=== PATIENT | female | born 1955 | race African-American/Black ===

== ENCOUNTER 2018-07-30 04:22 | Inpatient (IN) | payer OTHER ==
[~2018-07-30] VITALS: Ht 160 cm; Wt 95.3 kg
[2018-07-30] VITALS (7 sets, daily range): BP systolic 141–171; BP diastolic 66–85
[~2018-07-30 04:22] MED LIST: ACCUNEB SO1.25 MG/1 INH; BISACODYL SUPP10 MG RECTAL; COUMADIN 5 MG TA5 M1 PER TUBE; ENOXAPARIN60 MG/0.1 SUBQ; HYDRALAZINE 2525 MG PER TUBE; LEVEMIR100 UNIT/1 SUBQ; LEVOTHYROXIN0.025 MG PER TUBE; LOMOTIL TABLET1 EACH PER TUBE; MAPAP325 MG/10. PO; MIRALAX17 GM PER TUBE; NORVASC5 MG PER TUBE
[2018-07-30] MEDS ORDERED: MEROPENEM 1 GM V1 GM IV (04:30)
[2018-07-30] MEDS ORDERED: REGLAN 10 MG TA10 MG PO (04:31)
[2018-07-30] MEDS ORDERED: OMEPRAZOLE40 MG PO (04:33)
[2018-07-30] MEDS ORDERED: MIRALAX17 GM PO (04:33)
[2018-07-30] MEDS ORDERED: ONDANSETRON HCL4 M2 PO (04:33)
[2018-07-30] MEDS ORDERED: UNICOMPLEX M TA1 TA1 PO (04:33)
[2018-07-30] MEDS ORDERED: ULTRAM 50MG TAB50 MG PO (04:34)
[2018-07-30] MEDS ORDERED: VANCOMYCIN HCL 11 G2 PO (04:35)
[2018-07-30] MEDS ORDERED: COUMADIN 2.5MG2.5 M1 PO (04:36)
[2018-07-30] MEDS ORDERED: VITAMIN D22000 UNIT PO (04:36)
[2018-07-30] MEDS ORDERED: VANCO1GM PO (04:36)
[2018-07-30] MEDS ORDERED: VITAMIN C500 M2 PO (04:36)
[2018-07-30 04:59] LABS: BE(vivo) -0.4 mmol/L (-2 to +3); HCO3 26.4 mmol/L (22.0-26.0); PCO2 55.4 mmHg (35.0-45.0); PO2 78.9 mmHg (80.0-100.0); sO2 94.2 % (92.0-98.0)
[2018-07-30 05:00] LABS: pH 7.296 (7.360-7.450)
[2018-07-30 06:16] LABS: ABSOLUTE NEUTROPHILS 13.3 thou/uL (1.4-8.2); BASOPHILS 0.1 % (0.0-2.0); EOSINOPHILS 0.1 % (0.0-3.0); HEMATOCRIT 24.8 % (37.0-47.0); HEMOGLOBIN 7.7 gm/dL (12.0-15.0); LYMPHOCYTES 2.8 % (24.0-44.0); MCHC 31.1 g/dL (28.0-37.0); MONOCYTES 2.7 % (1.0-8.0); PLATELET COUNT 211 thou/uL (150-400); POLYS 94.3 % (36.0-66.0); RBC 2.85 mil/uL (4.20-5.00); RDW 24.3 % (10.5-14.5); WBC 14.1 thou/uL (4.0-11.0)
[2018-07-30 06:21] LABS: CREATININE 1.2 mg/dL (0.6-1.0)
[2018-07-30 06:24] LABS: POTASSIUM 5.7 mmol/L (3.5-5.1)
[2018-07-30 06:28] LABS: ALBUMIN 1.1 g/dL (3.4-5.0); MAGNESIUM 2.1 mg/dL (1.8-2.4); TOTAL BILIRUBIN 0.3 mg/dL (<0.1-1.0); TOTAL PROTEIN 8.4 g/dL (6.4-8.2); TROPONIN-I 0.07 ng/mL (<0.06)
[2018-07-30 06:29] LABS: APTT 44.1 Seconds (24.5-32.8); PROTIME 30.8 Seconds (9.3-11.4)
[2018-07-30 13:39] LABS: URINE BILIRUBIN NEGATIVE (Negative); URINE BLOOD NEGATIVE (Negative); URINE CLARITY CLOUDY; URINE COLOR YELLOW; URINE GLUCOSE-RANDOM* NEGATIVE (Negative); URINE KETONES NEGATIVE (Negative); URINE LEUKOCYTES-REFLEX NEGATIVE (Negative); URINE NITRITE-REFLEX NEGATIVE (Negative); URINE PROTEIN (DIPSTICK) TRACE (Negative); URINE SPECIFIC GRAVITY 1.025 (1.005-1.035); URINE UROBILINOGEN 0.2 E.U./dl (0.2-1.0)
--- NOTE | 2018-07-30 18:53 | NUR ---
PATIENT ADMITTED TO ROOM. IS ALERT TO SELF. HAS TO BE STRONGLY ENCOURAGED TO PARTICIPATE IN CARE SHE WILL FIRST REJECT ANY CARE BEFORE ACCEPTING. NOTED RIGH ARM EDEMA AND DR CAMEJO NOTIFIED. NO NEW ORDERS. PT DID COMPLAIN OF PAIN TO COCCYX AND PRN PAIN MEDICATION ADMINISTERED. WOUND DRESSING CHANGED WITH WET TO DRY DRESSING APPLIED. WILL CONT WITH PLAN OF CARE.
[2018-07-31 00:17] VITALS: BP 168/90
[2018-07-31 03:39] VITALS: BP 157/87
--- NOTE | 2018-07-31 03:43 | NUR ---
\PATIENT IS SLOWLY PROGRESSING IN CARE PLAN. VITAL SIGNS STABLE WITH NURSE NOT PERCEIVING ANY NAUSEA ON BEHALF OF PATIENT. NURSE DID PERCEIVE PAIN WHEN MOVING PATIENT AND TREATED IT WITH NON PHARMACOLOGICAL INTERVENTIONS. PATIENT IS NON VERBAL AND HAS HARD TIME COMMUNICATING WITH STAFF. NURSE ATTEMPTS YES/NO QUESTION TO VARYING DEGREES OF SUCCESS. DUE TO COLLAPSED MARISA NURSE WAS HESITANT TO TURN PATIENT. BREATHING STABLE ON FOUR LITERS NASAL CANNULA EVIDENCED BY CONTINUOUS SATURATION MONITOR READINGS. FREQUENT FECAL INCONTINENCE CLEANED FROM PATIENT WITH COCCYX WOUND DRESSING CHANGED MULTIPLE TIMES. PATIENT IS NPO AND IS POSSIBLY GOING FOR A BRONCHOSCOPY AND THORACENTESIS TODAY. NURSE RECEIVED ORDERS FOR PICC PLACEMENT AND WILL ATTEMPT TO CALL [facility]PO[facility] FOR VERBAL CONSENT WITH DAY NURSE. CONTINUE PLAN OF CARE.
--- NOTE | 2018-07-31 05:15 | NUR ---
lab called with critical vanco trough of 40. followed poc and called [facility] cece and pharmacist evita. carrol now on hold.
[2018-07-31 08:00] VITALS: BP 122/64
--- NOTE | 2018-07-31 08:21 | EKG ---
[place] [place] [address] ELECTROCARDIOGRAM REPORT Name: DAVID BOWEN Room #: 360-P ADM IN M.R.#: [id number] ������������������ Admission: 07/30/18 ������������������ Attend Phys: Kenny Dudley Discharge: ������������������ Date of : 53 Report #: [id number] ����������������������������������������������������������������� [id number] THIS REPORT FOR: //name// [facility] ED Test Date: 2018-07-30 Test Time: 05:09:24 Pat Name: DAVID BOWEN Department: Room: 360 Gender: F Sheet Metal Former: JACOB : 1955 Requested By: Gaston Hernandez Order Number: [id number] MD: Gokul Dillon Measurements Intervals [place] Rate: 60 P: SD: QRS: 247 QRSD: 161 T: 88 QT: 488 QTc: 488 Interpretive Statements Afib/flut and V-paced complexes No further analysis attempted due to paced rhythm Compared to ECG 07/31/2014 16:13:05 Ventricular pacing now present Electronically Signed On 07-31-2018 8:21:08 CDT by Gokul Dillon [email or web address] ��������������������������������������������� <ELECTRONICALLY SIGNED> ���������������������������������������� By: Gokul Dillon MD, [facility] ��������������������������������������������� 07/31/18 0821 0509 0509 Gokul Dillon MD, [facility] /EPI
--- NOTE | 2018-07-31 10:49 | 2DMMODE ---
[facility] [address] [place] [address] 2 D/M-MODE ECHOCARDIOGRAM Name: DAVID BOWEN Room #: 360-P ADM IN M.R.#: [id number] ������������� Admission: 07/30/18 ������������� Attend Phys: Kenny Soria Discharge: ��� ������������� ��� Date of : 53 Date of Service: 07/31/18 1049 �� Report #: [id number] �������� ��������������������������������������������[id number] THIS REPORT FOR: //name// APPROVED REPORT Study performed: 07/31/2018 09:31:49 EXAM: Comprehensive 2D, Doppler, and color-flow Echocardiogram Patient Location: Bedside Room #: 360 Status: routine BSA: 1.95 HR: 60 bpm BP: 157/87 mmHg Rhythm: Atrial Fibrillation Other Information Study Quality: Adequate Indications Congestive Heart Failure Diabetes Atrial Fibrillation Dyspnea Pacemaker CAD Hypertension/HDD 2D Dimensions RVDd: 41.91 mm IVSd: 14.16 (7-11mm) LVOT Diam: 16.60 (18-24mm) LVDd: 44.11 mm PWd: 14.58 (7-11mm) Ascending Ao: 29.32 (22-36mm) LVDs: 27.23 (25-40mm) Aortic Root: 33.60 mm IVC: 24.00 mm Volumes Left Atrial Volume (Systole) Single Plane 4CH: 83.59 mL Single Plane 2CH: 79.10 mL LA ESV Index: 45.00 mL/m2 Aortic Valve AoV Peak Prasanth.: 1.23 m/s AO Peak Gr.: 6.07 mmHg [facility] [address] [place] [address] 2 D/M-MODE ECHOCARDIOGRAM Name: DAVID BOWEN Room #: 360-P [facility] IN M.R.#: [id number] ������������� Admission: 07/30/18 ������������� Attend Phys: Kenny Soria Discharge: ��� ������������� ��� Date of : 53 Date of Service: 07/31/18 1049 �� Report #: [id number] �������� ��������������������������������������������[id number] Pulmonary Valve PV Peak Prasanth.: 0.84 m/s PV Peak Gr.: 2.86 mmHg Tricuspid Valve TR Peak Prasanth.: 3.48 m/s TR Peak Gr.: 48.54 mmHg PA Pressure: 59.00 mmHg Left Ventricle The left ventricle is normal size. There is normal LV segmental wall motion. Mild to moderate concentric left ventricular hypertrophy. The left ventricular systolic function is normal. The left ventricular ejection fraction is within the normal range. LVEF is 55-60%. This study is not technically sufficient to allow evaluation of the LV diastolic function due to atrial fibrillation. Right Ventricle The right ventricle is normal size. The right ventricular systolic function is normal. Atria Left atrium is dilated. Right atrium is dilated. Aortic Valve The aortic valve is normal in structure. Aortic valve is calcified. No aortic regurgitation is present. There is no aortic valvular stenosis. Mitral Valve The mitral valve is normal in structure. Mild mitral regurgitation. No evidence of mitral valve stenosis. Tricuspid Valve The tricuspid valve is normal in structure. There is mild tricuspid regurgitation. Estimated PAP 59 mmHg. There is moderate pulmonary hypertension. Pulmonic Valve The pulmonary valve is normal in structure. Trace pulmonic regurgitation. Great Vessels The aortic root is normal in size. IVC is dilated and collapses <50% with inspiration. Pericardium [facility] [address] [address] 2 D/M-MODE ECHOCARDIOGRAM Name: DAVID BOWEN Room #: [address] [place] [address] [place] [facility].#: [id number] ������������� Admission: 07/30/18 ������������� Attend Phys: Kenny Soria Discharge: ��� ������������� ��� Date of : 53 Date of Service: 07/31/18 1049 �� Report #: [id number] �������� ��������������������������������������������[id number] There is no pericardial effusion. <Conclusion> The left ventricle is normal size. LVEF is 55-60%. Mild to moderate concentric left ventricular hypertrophy. Left atrium is dilated. Right atrium is dilated. The aortic valve is normal in structure. Aortic valve is calcified. The mitral valve is normal in structure. Mild mitral regurgitation. The tricuspid valve is normal in structure. There is mild tricuspid regurgitation. Estimated PAP 59 mmHg. There is moderate pulmonary hypertension. The pulmonary valve is normal in structure. Trace pulmonic regurgitation. There is no pericardial effusion. ��������������������������������������������� <ELECTRONICALLY SIGNED> ���������������������������������������� By: Dylon Betancourt MD ��������������������������������������������� 07/31/18 1049 1049 1049 Dylon Betancourt MD /INF
--- NOTE | 2018-07-31 11:54 | NUR ---
Nutrition: When able to resume tube feeds, REC Glucerna 1.2 to run at 65 mL/hr to meet ~100% of needs.
[2018-07-31 12:30] VITALS: BP 112/80
[2018-07-31 12:37] LABS: HEMATOCRIT 24.3 % (37.0-47.0); HEMOGLOBIN 7.7 gm/dL (12.0-15.0); MCH 27.5 pg (26.0-34.0); MCHC 31.6 g/dL (28.0-37.0); MCV 87.1 fL (80.0-100.0); RBC 2.79 mil/uL (4.20-5.00); RDW 24.4 % (10.5-14.5); WBC 8.3 thou/uL (4.0-11.0)
[2018-07-31 12:50] LABS: CALCIUM 8.1 mg/dL (8.5-10.1); CREATININE 1.1 mg/dL (0.6-1.0); POTASSIUM 4.3 mmol/L (3.5-5.1); TOTAL BILIRUBIN 0.4 mg/dL (<0.1-1.0); TOTAL PROTEIN 7.8 g/dL (6.4-8.2)
[2018-07-31 12:53] LABS: INR 4.1; PROTIME 42.7 Seconds (9.3-11.4)
--- NOTE | 2018-07-31 13:03 | NUR ---
VASCULAR ACCESS CONSULTED FOR A PICC FOR THIS PT WITH AN INR OF 3, HGB OF 7.7 AND HAS LT CVA RESIDUAL WITH EDEMA. LINE PLACED PER HOSPITAL P&P. PLEASE SEE INSERTION NI FOR DETAILS. LINE RELEASED TO RN FOR USE AFTER CXR
--- NOTE | 2018-07-31 15:02 | NUR ---
assessment: CM REVIEWED CHART AND SPOKE WITH ATTENDING. PT WAS ADMITTED WITH PNEUMONIA, LIKELY ASPIRATION. PT HAS HX OF CVA AND APHASIA/LEFT SIDED HEMIPLEGIA. PT HAS SACRAL WOUNDS AND LIKELY NEEDING WOUND VAC. PT HAS COLLAPSED LEFT LUNG AND TALKS OF POSSIBLE BRONCH VS AGGRESIVE PULMONARY CLEARANCE. CM WAS ON THE UNIT CHARTING AND PATIENTS DAUGHTER CAME UP TO CASE MANAGEMENT AND WAS VERY TEARFUL STATING SHE WAS GOING HOME FOR THE DAY AND CANNOT MAKE ANYMORE DECISIONS TODAY BUT STATES THEY MAY BE LEANING TOWARDS HOSPICE BUT SHE DOES NOT WANT TO DISCUSS ANOTHER UNTIL TOMORROW. CM REACHED OUT TO [facility] AND PT WAS ON THEIR LONGTERM UNIT AND AFTER HER SKILLED STAY WAS SUPPOSED TO GO HOME WITH FAMILY. CM FAXED UPDATED CLINICAL TO [facility] WELL SPOKE WITH ADMISSIONS/LIASON. CM WILL CONTINUE TO FOLLOW TO ASSIST NEEDED.
--- NOTE | 2018-07-31 15:58 | NUR ---
CONT ON O2@3. OXYGEN SATS HAVE REMAINED ABOVE 96%. SWELLING TO LEFT HAND NOTED TO BE SAME SIZE LIKE YESTERDAY. WHOLE ARM ELEVATED. PICC LINE PLACED TODAY AND SHE TOLERATED WELL. NEW ORDERS FOR WOUND. DARKINS. CONT ON IV D5. GAVE PAIN MED ONCE AND IT HAS BEEN EFFECTIVE. WILL CONT WITH PLAN OF CARE.
[2018-07-31 16:37] VITALS: BP 140/63
--- NOTE | 2018-07-31 17:38 | NUR ---
WOUND CONSULT: PT. WAS SEEN TODAY BY DR. HADDAD AND MYSELF. PT. HAS A STAGE 4 PRESSURE ULCER TO HER SACRUM. WOUND IS STABLE AT THIS TIME. PT. IS HAVE LOTS OF FECAL STOOL AT THIS TIME SO, WE WILL CONTINUE WITH WET TO DRY DRESSINGS. RECOMMENDATIONS: CONTINUE WITH CURRENT PLAN OF CARE. PT. AND STAFF NURSE WERE INSTRUCTED ON PLAN OF CARE.
[2018-07-31 21:20] VITALS: BP 146/46
--- NOTE | 2018-08-01 03:27 | NUR ---
ASSUMED CARE OF PATIENT AT 1845. PATIENT IS NOT PROGRESSING IN CURRENT CARE PLAN. VITAL SIGNS STABLE WITH NURSE NOT PERCEIVING PAIN OR NAUSEA ON BEHALF OF PATIENT. SHE IS CONFUSED AND ORIENTED TO SELF WITH INABILITY TO COMMUNICATE EFFECTIVELY. BREATHING STABLE ON TWO LITERS OF OXYGEN EVIDENCED BY CONTINUOUS SATURATION READINGS IN ACCEPTABLE RANGE. WOUND CARE PROVIDED PER ORDER. PATIENT WAS TURNED AND REPOSITIONED MUCH BREATHING WOULD ALLOW. NEVER PUT ON RIGHT SIDE DUE TO COLLAPSED LUNG. PATIENT FAMILY STILL WEIGHING POSSIBLE HOSPICE. CONTINUE PLAN OF CARE.
[2018-08-01 05:45] VITALS: BP 137/61
--- NOTE | 2018-08-01 08:10 | NUR ---
PT ALERT TO NURSE SPEAKING TO HER, WILL NOD HEAD, TURN Q2H TURNED ON TELE FOR HER, ACCU CHECKS, LET HER KNOW WE'D CHECK ON HER FREQUENTLY, NO APPARENT NEEDS AT THIS TIME. SOUGHT OUT MOUTH SWABS AND PLACED TABLE ON HER RIGHT FOR HER TO ACCESS HERSELF. WILL CONTINUE TO MONITOR
[2018-08-01 08:20] VITALS: BP 161/80
[2018-08-01 12:05] VITALS: BP 147/68
--- NOTE | 2018-08-01 12:54 | NUR ---
WOUND FOLLOW UP: PT. WAS SEEN TODAY BY DR. HADDAD AND MYSELF. PT. WOUND IS NON-CHANGED FROM YESTERDAY BUT, IS STABLE. RECOMMENDATIONS: CONTINUE WITH CURRENT PLAN OF CARE. PT. AND STAFF NURSE WERE INSTRUCTED ON PLAN OF CARE.
--- NOTE | 2018-08-01 13:22 | NUR ---
ON-GOING ASSESSMENT: CM WAS ABLE TO MEET WITH PATIENTS DAUGHTER ARIAS WELL PATIENTS AT THE BEDSIDE. PT LIVES AT HOME WITH AND DAUGHTER IN A HOUSE. PT HAS A WHEELCHAIR/WALKER/HOSPITAL BED/LOW AIR MATTRESS. DAUGHTER REPORTS SINCE PATIENT HAD BEEN AT [facility] SNF SHE HAS STARTED THE PROCESS FOR APPLYING FOR MEDICAID BUT STATES SHE IS STILL WORKING ON GETTING THE CORRECT PAPERWORK. CM FAXED REFERRAL TO [facility] TO HELP ASSIST HER PER HER REQUEST AND PROVIDED THEM WITH THE LYNNE NUMBER. PTS DAUGHTER AND STATING THEY WANT TO PURSURE HOSPICE AND HAVE ALREADY BEEN SPEAKING WITH [facility] FOR A COUPLE OF WEEKS AND REPORT TALKING TO PATRICIA ([phone]). CM CONTACTED [facility] AND FAXED REFERRAL. AND DAUGHTER FEEL PATIENTS LEVEL OF CARE HAS DRASTICALLY CHANGED SINCE SHE HAS BEEN AT HOME AND ARE THINKING SHE MAY NEED 24/7 CARE AND ARE INTERESTED IN [facility] LTC OR [facility]. CM DISCUSSED SOME FACILITIES ACCEPT PATIENTS LTC MEDICAID PENDING AND CM WOULD REACH OUT TO [facility] TO SEE IF THEY COULD. CM SPOKE WITH TRACE GONZÁLES FROM [facility] AND SHE WAS GOING TO CHECK WITH THE FACILITY AND CONTACT CM BACK. CM WILL CONTINUE TO FOLLOW TO ASSIST NEEDED.
--- NOTE | 2018-08-01 14:56 | NUR ---
dp sent [facility] a Hospice referral for respite stay, w/ [facility] hospice. DP called Wm/admissions at [facility] and made sure she received referral
[2018-08-01 16:53] VITALS: BP 80/50
[2018-08-01 19:09] VITALS: BP 146/81
--- NOTE | 2018-08-01 19:16 | NUR ---
TUBE FEED BOLUS STARTED AT 1800
[2018-08-02 03:48] VITALS: BP 148/80
--- NOTE | 2018-08-02 06:03 | NUR ---
HOURLY ROUNDING AND FOLLOWING POC WITH IVPB ANTIBIOTICS AND Q2 TURNS. PT REMOVES OXYGEN AT VARIOUS TIMES THROUGH SHIFT. CONTINOUS PULSE OX STILL SHOWS PT ABOVE 90% AT THOSE TIMES. UNABLE TO GET A SPUTUM SAMPLE AND WILL PASS THIS ON TO NEXT SHIFT. PT INCONTINENT TO BOWEL 1X ON NOC.
[2018-08-02 08:25] VITALS: BP 132/78
--- NOTE | 2018-08-02 09:20 | HC ---
[facility] [place] [address] CONSULTATION Name: DAVID BOWEN Room #: 360-[facility] IN M.R.#: [id number] Admission: 07/30/18 ������������������ Attend Phys: Kenny Dudley Discharge: ������������������ Date of : 53 Report #: [id number] THIS REPORT FOR: //name// CC: Parvez Dudley DATE OF SERVICE: 07/31/2018 CHIEF COMPLAINT: Stage 4 sacral pressure ulceration. HISTORY OF PRESENT ILLNESS: This is a 63-year-old female patient with a long-standing history of a stage 4 sacral pressure ulceration and paraplegias due to a previous cerebrovascular accident. The patient is unable to verbalize due to previous cerebrovascular accident. She was admitted with respiratory failure. It is noted in her records that she has been on vancomycin and has had a wound VAC in place for her sacral ulceration. She normally is a resident at [facility]. PAST MEDICAL HISTORY: Positive for diabetes mellitus, atrial fibrillation, stage 4 sacral pressure ulceration, congestive heart failure and cerebrovascular accident with resulting left-sided hemiplegia, aphasia. ALLERGIES: None. MEDICATIONS: Include meropenem, metoclopramide, MiraLax, omeprazole, Zofran, Ultram, vancomycin, vitamin C and Coumadin. SOCIAL HISTORY: Negative for alcohol or tobacco use. FAMILY HISTORY: Noncontributory. REVIEW OF SYSTEMS: Not obtainable due to the patient's aphasia and inability to even answer simple questions. PHYSICAL EXAMINATION: VITAL SIGNS: At this time include temperature 96.9, pulse 60, respiratory rate of 24 and blood pressure 146/46. GENERAL: This is a chronically ill-appearing female patient who appears to be in minimal distress. HEENT: Head normocephalic. Nose and throat clear. NECK: Supple. LUNGS: Diminished. HEART: Irregular, without murmur. ABDOMEN: Soft. Bowel sounds present. GENITOURINARY: Examination of the sacral region demonstrates a stage 4 sacral pressure ulceration. It is 80% to 90% covered with granulation tissue. The [address] [address] CONSULTATION Name: DAVID BOWEN Room #: 360-P [facility] IN M.R.#: [id number] Admission: 07/30/18 ������������������ Attend Phys: Kenny Dudley Discharge: ������������������ Date of : 53 Report #: [id number] other 10% to 20% is covered with slough. There is some palpable soft bone in the base. It is not overtly infected. There is no obvious odor or drainage noted. There is undermining all the way around. NEUROLOGIC: The patient has left hemiplegia. LABORATORY DATA: Includes sodium 138, potassium 4.3, chloride 105, CO2 of 29, BUN 36, creatinine 1.1 and glucose 113. Albumin is 1.0. White blood cell count 8.3 with a hemoglobin of 7.7. CLINICAL IMPRESSION: 1. Stage 4 sacral pressure ulceration. 2. Left hemiplegia secondary to cerebrovascular accident. 3. Severe protein-calorie malnutrition. 4. Acute respiratory failure. RECOMMENDATIONS: At this point in time, I think we will hold off on the wound VAC and use a quarter-strength Dakin's moist gauze dressing b.i.d. She will need a low air loss mattress, q. 2-hour turning and repositioning. She may be a candidate for further surgical debridement, although given her other underlying medical issues at this time, I do not think that we would plan to do this anytime soon. She will need aggressive nutritional support if we are to expect any form of wound healing. I appreciate being asked to see her in consultation. ��������������������������������������������� <ELECTRONICALLY SIGNED> ���������������������������������������� By: Josh Smith MD ��������������������������������������������� 08/02/18 0920 [id number] Josh Smith MD /nt
[2018-08-02] MEDS ORDERED: IPRAT-ALBUT 0.5-3 ML INH ×2 (10:22)
[2018-08-02] MEDS ORDERED: ATIVAN0.5 MG PO (10:23)
[2018-08-02] MEDS ORDERED: DURAGESIC1 EAC4 TRANSDERM (10:23)
[2018-08-02] MEDS ORDERED: MSL20MG/ML PO (10:24)
[2018-08-02 12:41] VITALS: BP 153/81
--- NOTE | 2018-08-02 15:22 | NUR ---
ON-GOING ASSESSMENT: CM REVIEWED CHART AND CONTACTED PATIENT DAUGHTER ARIAS THIS AM ([phone]) TO DISCUSS FURTHER DISCHARGE PLANNING. REFERRAL WAS SENT YESTERDAY FOR [facility] DUE TO FAMILY BEING INTERESTED IN POSSIBLE LTC EVENTUALLY THERE BUT [facility]KKI NGUYEN STATING THEY WOULD REVIEW FOR POSSIBLE RESPITE STAY WITH [facility]. PIO SPOKE WITH [facility] FROM [facility] WHO STATES THEY CAN ACCEPT PATIENT TO RESPITE STAY BUT THEY DO NOT HAVE ISOSOURCE THERE BUT CAN TAKE HER IS [facility] CAN SUPPLY THAT. CM REACHED OUT OT [employer]REE DISPLAY CARD WRITER AT [facility] AND SHE STATES THEY WOULD BE ABLE TO DO THAT BUT HAVE TO ORDER IT AND IT WILL NOT BE AVAILABLE UNTIL TOMORROW. CM SPOKE WITH TRACE FROM [facility] WHO HAS BEEN WORKING WITH [facility] AND PLANS TO DISCHARGE LIKELY TOMORROW. CM REACHED OUT TO PATIENTS DAUGHTER THIS AFTERNOON TO NOTIFY THAT PATIENT HAS DISCHARGE ORDERS FOR TODAY AND [facility] CAN TAKE HER. SHE IS STATING SHE IS NOT AGREEABLE FOR PATIENT TO GO TO TODAY STATING SHE WAS TOLD BY A PHYSICIAN IT WOULD BE A COUPLE DAYS AND SHE IS STILL TRYING TO GET ALL THE INFORMATION TO SUBMIT FOR MEDICAID CONSTANTIN. CM LEFT VM WITH ANA FROM [employer] THIS AM TO CONTACT THE DAUGHTER AND FOLLOW UP WITH ANY ASSISTANCE NEEDED FAR THE MEDICAID APPLICATION. CM DISCUSSED THAT MEDICAID CONSTANTIN IS A PROCESS AND IT LIKELY WOULD NOT BE ACTIVE FOR MANY DAYS AND NEED TO DISCUSS DISCHARGE PLANNING AND PLANS IN THE MEANTIME. DAUGHTER STATING SHE NEEDS ANOTHER DAY TO GET PAPERWORK READY AND DOES NOT WANT TO DISCHARGE TODAY. CM REACHED OUT TO ATTENDING TO NOTIFY AND REQUESTED HE CONTACT THE DAUGHTER, HE LEFT VM. CM ATTEMPTED TO REACH DAUGHTER AGAIN BUT NO ANSWER AND VM LEFT. CM NOTIFIED NIKKI NGUYEN THAT PLAN IS TO LIKELY DISCHAGRE TOMORROW WITH [facility]. CM WILL CONTINUE TO FOLLOW TO ASSIST NEEDED. PIO ALSO SPOKE WITH ELIECER FROM [facility] WHERE PATIENT WAS SNF AND REQUESTED SHE CONTACT THE DAUGHTER FAR IF THEY ARE AN OPTION FOR POSSIBLE LTC LATER DOWN THE ROAD.
[2018-08-02 16:12] VITALS: BP 151/69
--- NOTE | 2018-08-02 18:15 | NUR ---
ASSUMED CARE OF PT AT APPROX 0700. PT IS ALERT, ABLE TO FOLLOW COMMANDS, ABLE TO COMMUNICATE YES AND NO. DENIES PAIN. EVEN NON LABORED BREATHING. ASSESSMENT CHARTED. PLAN FOR PATIENT TO DC WITH HOSPICE. BUT UNABLE TO INSURANCE IS NOT READY AT THIS TIME AND FAMILY HAS FURTHER CONCERNS. TUBE FEED BOLUS AND FLUSHES PROVIDED ORDERED. WILL CONTINUE TO MONITOR.
[2018-08-02 20:43] VITALS: BP 123/83
[2018-08-03 04:31] VITALS: BP 144/63
--- NOTE | 2018-08-03 06:02 | NUR ---
Q2 TURNS AND LOW LOSS AIR MATTRESS. FOLLOWING POC WITH BOLUS FEED AND 100 ML H20 FLUSH X2. REPLACED O2 SAT PROBE ON HEAD OF PT DUE TO IT COMING OFF. PT SLEPT MOST OF NIGHT. PT COULD POSSIBLE DC TODAY.
[2018-08-03 08:10] VITALS: BP 162/75
--- NOTE | 2018-08-03 13:35 | NUR ---
on-going assessment: PT HAS ORDERS TO DISCHARGE TODAY. CM CONTACTED PATIENTS DAUGHTER/LEGAL GUARDIAN ARIAS [phone] AND NOTIFIED HER AND SHE IS AGREEABLE FOR PATIENT TO GO TO [facility] FOR RESPITE STAY WITH [facility]. CM SPOKE WITH DEANGELO IN ADMISSION AT [facility] AND THEY HAVE ACCEPTED PATIENT. CM FAXED D/C PAPERWORK AND CONFIRMED THEY RECEIVED IT. CM ALSO FAXED D/C PAPERWORK TO [facility] AND CONFIRMED THEY RECEIVED IT WELL. PIO SPOKE WITH DIRECTOR OF EMERGENCY NURSING AT [facility] WHO STATES THEY HAD THE EQUIPTMENT ALREADY DELIVERED TO [facility]. CM NOTIFIED ELIECER AT [facility] (THE SNF SHE IS FROM) THAT PATIENT WAS DISCHARGING TODAY AND SHE WAS GOING TO CONTACT HER DAUGHTER REGARDING POSSIBLE LTC. CHART COPY WAS ORDERED AND UPDATED TO GO WITH PATIENT TO FACILITY. DAUGHTER IS PRESENT IN THE ROOM WELL PATIENTS . OUTSIDE DNR FORM COMPLETED AND IS ON THE FRONT OF CHART. TRANSPORTATION WAS ARRANGED VIA [employer] [phone]. [facility] FORM IS ON THE FRONT OF CHART. BEDSIDE RN WAS GIVEN THE NUMBER FOR REPORT. PT AND DAUGHTER REPORT NO FURTHER QUESTIONS AT THIS TIME.
--- NOTE | 2018-08-03 15:09 | NUR ---
Assumed care of patient at 0700. Vitals have been stable. Patient is alert, oriented to person. Able to communicate needs by nodding yes / no, arm movements. When asked if in pain this morning, patient nods yes and points to sacrum. Morphine given PRN with good effect. Peg tube with bolus feeds; tolerating well. Bassett to DD. Repositioning every couple hours, as patient allows. Wound care completed per orders. Picture taken and placed in chart in anticipation of discharge. Discharge orders received. Family at bedside. PICC line discontinued; pressure held x 5 minutes and dressing applied. Belongings gathered. Report called to JAGDEEP Ash at [facility]. Ambulance here and transported patient via stretcher.
== END 2018-08-03 14:17 | DRG 177 ==
LOC: ER 04:22 → 3W 05:22 → EROBS 05:22 → 3W 07:14
PROVIDERS: Emergency Medicine; ADMIT Hospitalist
PROC: 02HV33Z Insertion of Infusion Device into Superior Vena Cava, Percutaneous Approach (ICD-10-PCS; principal; 2018-07-31)
DX: J69.0 Pneumonitis due to inhalation of food and vomit (principal); L89.154 Pressure ulcer of sacral region, stage 4; E43 Unspecified severe protein-calorie malnutrition; J96.01 Acute respiratory failure with hypoxia; J96.02 Acute respiratory failure with hypercapnia; J86.0 Pyothorax with fistula; G81.94 Hemiplegia, unspecified affecting left nondominant side; G82.20 Paraplegia, unspecified; E87.1 Hypo-osmolality and hyponatremia; J98.19 Other pulmonary collapse; I25.10 Atherosclerotic heart disease of native coronary artery without angina pectoris; E11.9 Type 2 diabetes mellitus without complications; E78.5 Hyperlipidemia, unspecified; I48.91 Unspecified atrial fibrillation; I11.0 Hypertensive heart disease with heart failure; D64.9 Anemia, unspecified; I50.9 Heart failure, unspecified; E87.5 Hyperkalemia; J98.09 Other diseases of bronchus, not elsewhere classified; Z23 Encounter for immunization; Z79.4 Long term (current) use of insulin; Z90.710 Acquired absence of both cervix and uterus; Z86.73 Personal history of transient ischemic attack (TIA), and cerebral infarction without residual deficits; Z95.0 Presence of cardiac pacemaker; Z82.49 Family history of ischemic heart disease and other diseases of the circulatory system; Z83.6 Family history of other diseases of the respiratory system; Z84.1 Family history of disorders of kidney and ureter
CPT/HCPCS: 10879; 27000